=== PATIENT | male | born 1990 | race Caucasian/White ===

== ENCOUNTER 2017-07-29 19:10 | Emergency (ER) | payer BC, OTHER ==
[2017-07-29 19:36] VITALS: BP 132/103
--- NOTE | 2017-07-29 20:04 | EDM.PDOC ---
ED HPI GENERAL MEDICAL PROBLEM - General Chief Complaint: ENT Problem Stated Complaint: BROKEN NOSE Time Seen by Provider: 07/29/17 19:36 Source of Information: Reports: Patient, Family History Limitations: Reports: No Limitations - History of Present Illness INITIAL COMMENTS - FREE TEXT/NARRATIVE: The patient was at softball tonight and he got hit in the nose. He had some bleeding from his nose and he also has a deformity to his nose. He has no headache, neck pain and he had no LOC. He is getting in a few days. Onset: Sudden Duration: Minutes: Location: Reports: Face (Nose) Quality: Reports: Sharp Severity: Moderate Improves with: Reports: None Worsens with: Reports: None Associated Symptoms: Reports: No Other Symptoms Nose Pain Score (Numeric/FACES): 2 Headache Pain Score (Numeric/FACES): 4 - Related Data Allergies Allergy/AdvReac Type Severity Reaction Status Date / Time No Known Allergies Allergy Verified 07/29/17 19:32 Home Meds: Home Meds . [No Known Home Meds] 07/17/14 [History] Past Medical History - Past Health History Medical/Surgical History: Denies Medical/Surgical History Social & Family History - Tobacco Use Smoking Status *Q: Never Smoker - Caffeine Use Caffeine Use: Reports: Soda - Recreational Drug Use Recreational Drug Use: No ED ROS ENT - Review of Systems Review Of Systems: See Below Constitutional: Reports: No Symptoms HEENT: Reports: Other (Nose pain and deformity with some bleeding) Respiratory: Reports: No Symptoms Cardiovascular: Reports: No Symptoms Endocrine: Reports: No Symptoms GI/Abdominal: Reports: No Symptoms : Reports: No Symptoms Musculoskeletal: Reports: No Symptoms Skin: Reports: No Symptoms Neurological: Reports: No Symptoms ED EXAM, ENT - Physical Exam Exam: See Below Exam Limited By: No Limitations General Appearance: Alert, No Apparent Distress Eye Exam: Bilateral Eye: EOMI Ears: Normal External Exam Nose: Dried Blood, Other (Dried blood at the tip of his nose. Mild edema and deformity of the mid nose to the right.) Mouth/Throat: Normal Inspection Head: Atraumatic, Normocephalic Neck: Normal Inspection, Supple, Non-Tender Respiratory/Chest: No Respiratory Distress, Lungs Clear, Normal Breath Sounds Cardiovascular: Regular Rate, Rhythm, No Edema, No Murmur GI/Abdominal: Soft, Non-Tender, No Organomegaly, No Mass Back: Normal Inspection Extremities: Normal Inspection Course - Vital Signs Last Recorded V/S: Last Vital Signs Temp 98.2 F 07/29/17 19:32 Pulse 80 07/29/17 19:32 Resp 18 07/29/17 19:32 BP 132/103 H 07/29/17 19:32 Pulse Ox 99 07/29/17 19:32 - Re-Assessments/Exams Free Text/Narrative Re-Assessment/Exam: 07/29/17 20:04 I have ordered a CT of his maxilofacial bones. 07/29/17 21:[address] shows minimally displaced nasal bone fracture. CT study of the facial bones is otherwise unremarkable. I called Dr Villarreal ENT manager operations and procurement for [facility]. He wanted to see the patient tomorrow. I will send the CT to [facility] and a CD with the patient. Departure - Departure Time of Disposition: 21:20 Disposition: Home, Self-Care 01 Condition: Good Clinical Impression: Nasal bone fracture Qualifiers: Encounter type: initial encounter Fracture type: closed Qualified Code(s): S02.2XXA - Fracture of nasal bones, initial encounter for closed fracture - Discharge Information Referrals: Daniel Brasher Jr, MD [Primary Care Provider] - Forms: ED Department Discharge Additional Instructions: Ice your nose for 15 minutes every other hour while awake. Call Dr iVllarreal's office tomorrow at [facility] starting at 8am [place] time. He would like to see you tomorrow. [facility]'s number is . Please return if you are worse.
--- NOTE | 2017-07-29 20:37 | CT ---
CT facial bones Technique: Multiple axial sections through the facial bones were obtained. Intravenous contrast not utilized. Reconstructed coronal and sagittal images were reviewed. Findings: Minimally displaced nasal bone fracture is seen. Sinuses are clear. Mastoid sinuses are also clear. Right and left globes are symmetric. No additional facial bone fracture is seen. Impression: 1. Minimally displaced nasal bone fracture. 2. CT study of the facial bones is otherwise unremarkable. Diagnostic code #3
== END 2017-07-29 21:26 | disposition home or self-care (01) ==
LOC: JD.ED 19:10
DX: S02.2XXA Fracture of nasal bones, initial encounter for closed fracture (principal); W21.07XA Struck by softball, initial encounter
CPT/HCPCS: 70486; 70486-26; 99283; 99284

== ENCOUNTER 2021-12-04 09:05 | Emergency (ER) | payer BC ==
[2021-12-04 09:16] VITALS: BP 132/92; PULSE 65
== END 2021-12-04 11:20 | disposition home or self-care (01) ==
LOC: JD.ED 09:05
DX: S09.90XA Unspecified injury of head, initial encounter (principal)
CPT/HCPCS: 70450; 70450-26; 99283